=== PATIENT | female | born 1950 | race Caucasian/White ===

== ENCOUNTER 2024-09-06 18:06 | Emergency (ER) | payer MEDICARE, BC ==
--- NOTE | 2024-09-06 18:27 | ED ---
General Adult HPI - General Chief complaint: Head Injury Stated complaint: Fall Time Seen by Provider: 09/06/24 18:10 Source: patient, RN notes reviewed, old records reviewed Mode of arrival: EMS Limitations: no limitations - History of Present Illness Initial comments: This is a 73-year-old female who was walking her dogs and the dog pulled on her she fell over and hit her head against a brick wall. Patient did not lose consciousness she denies being dazed. Patient states she has chronic neck pain and she continues to have some of that neck pain today. Her major complaint is that she has pain in her right shoulder. Patient denies any chest or back pain. Patient has abdominal pain patient [place] any lower extremity pain. - Related Data Allergies Allergy/AdvReac Type Severity Reaction Status Date / Time clarithromycin [From Biaxin] Allergy Unknown Verified 09/06/24 18:16 Childhood Sulfa (Sulfonamide Allergy Unknown Verified 09/06/24 18:16 Antibiotics) Childhood Review of Systems ROS Statement: Those systems with pertinent positive or pertinent negative responses have been documented in the HPI. ROS Other: All systems not noted in ROS Statement are negative. Past Medical History Additional Past Medical History / Comment(s): TBI Past Psychological History: No Psychological Hx Reported Smoking Status: Never smoker Past Alcohol Use History: Occasional Past Drug Use History: None Reported General Exam - General Exam Comments Initial Comments: GENERAL: Patient is well-developed and well-nourished. Patient is nontoxic and well- hydrated and is in moderate distress. ENT: Neck is soft and supple. No significant lymphadenopathy is noted. Oropharynx is clear. Moist mucous membranes. Neck has full range of motion without eliciting any pain. EYES: The sclera were anicteric and conjunctiva were pink and moist. Extraocular movements were intact and pupils were equal round and reactive to light. Eyelids were unremarkable. PULMONARY: Unlabored respirations. Good breath sounds bilaterally. No audible rales rhonchi or wheezing was noted. CARDIOVASCULAR: There is a regular rate and rhythm without any murmurs gallops or rubs. ABDOMEN: Patient has a very superficial abrasion in the frontal region of her scalp on the right SKIN: Skin is clear with no lesions or rashes and otherwise unremarkable. NEUROLOGIC: Patient is alert and oriented x3. Cranial nerves II through XII are grossly intact. Motor and sensory are also intact. Normal speech, volume and content. Symmetrical smile. MUSCULOSKELETAL: Patient has tenderness of the right clavicle and anterior aspect of the acr omioclavicular joint LYMPHATICS: No significant lymphadenopathy is noted PSYCHIATRIC: Normal psychiatric evaluation. Limitations: no limitations Course Vital Signs 09/06/24 09/06/24 09/06/24 18:10 18:37 18:45 Temperature 98.2 F Pulse Rate 66 65 62 Respiratory 18 22 22 Rate Blood Pressure 135/91 166/89 171/121 O2 Sat by Pulse 96 96 95 Oximetry 09/06/24 19:26 Temperature Pulse Rate 73 Respiratory 18 Rate Blood Pressure 130/110 O2 Sat by Pulse Oximetry Medical Decision Making - Medical Decision Making Was pt. sent in by a medical professional or institution (, [facility], DATA ENGINEER, urgent care, hospital, or jail...) When possible be specific @ -No Did you speak to anyone other than the patient for history (EMS, parent, family, police, friend...)? What history was obtained from this source @ -No Did you review nursing and triage notes (agree or disagree)? Why? @ -I reviewed and agree with nursing and triage notes Were old charts reviewed (outside hosp., previous admission, EMS record, old EKG, old radiological studies, urgent care reports/EKG's, jail records)? Report findings @ -No old charts were reviewed Differential Diagnosis? @ -Cervical spine fracture, skull fracture, subdural hematoma, subarachnoid, epidural, intraparenchymal hemorrhage, shoulder fracture, clavicle fracture this is not all-inclusive list EKG interpreted by me (3pts min.). @ -As above X-rays interpreted by me (1pt min.). @ -X-ray of the shoulder shows a distal right clavicle fracture CT interpreted by me (1pt min.). @ -CT of the brain and C-spine showed no acute abnormality U/S interpreted by me (1pt. min.). @ -None done What testing was considered but not performed or refused? (CT, X-rays, U/S, labs)? Why? @ -None What meds were considered but not given or refused? Why? @ -None Did you discuss the management of the patient with other professionals (professionals i.e. [facility] Smith, DATA ENGINEER, lab, RT, psych nurse, child protective services social worker, pay station department manager, teacher, ground intelligence officer, case consultant)? Give summary @ -No Was smoking cessation discussed for >3mins.? @ -No Was critical care preformed (if so, how long)? @ -No Were there social determinants of health that impacted care today? How? (Homelessness, low income, unemployed, alcoholism, drug addiction, transportation, low edu. Level, literacy, decrease access to med. care, usp, rehab)? @ -No Was there de-escalation of care discussed even if they declined (Discuss DNR or withdrawal of care, Hospice)? DNR status @ -No What co-morbidities impacted this encounter? (DM, HTN, Smoking, COPD, CAD, Cancer, CVA, ARF, Chemo, Hep., AIDS, mental health diagnosis, sleep apnea, morbid obesity)? @ -None Was patient admitted / discharged? Hospital course, mention meds given and route, prescriptions, significant lab abnormalities, going to OR and other pertinent info. @ -Patient had a clavicle fracture. Patient was put in a shoulder immobilizer and given pain meds in the emergency department but was unable to go home on pain meds because she has a pain doctor. Undiagnosed new problem with uncertain prognosis? @ -No Drug Therapy requiring intensive monitoring for toxicity (Heparin, Nitro, Insulin, Cardizem)? @ -No Were any procedures done? @ -No Diagnosis/symptom? @ -Clavicle fracture Acute, or Chronic, or Acute on Chronic? @ -Acute Uncomplicated (without systemic symptoms) or Complicated (systemic symptoms)? @ -Uncomplicated Side effects of treatment? @ -No Exacerbation, Progression, or Severe Exacerbation? @ -No Poses a threat to life or bodily function? How? (Chest pain, [place], MD, pneumonia, PE, COPD, DKA, ARF, appy, cholecystitis, CVA, Diverticulitis, Homicidal, Suicidal, threat to staff... and all critical care pts) @ -No Disposition Clinical Impression: Clavicle fracture, Closed head injury Disposition: HOME SELF-CARE Instructions (If sedation given, give patient instructions): Clavicle Fracture (ED), Head Injury (ED) Is patient prescribed a controlled substance at d/c from ED?: No Referrals: Nonstaff,Physician [Primary Care Provider] - 1-2 days Cedric Mehta DO [Doctor of Osteopathic Medicine] - 1-2 days Time of Disposition: 19:34
[2024-09-06] MEDS: HYDROmorphone 0.5 MG/0.5 ML SYRINGE IVP STA ×2 (18:31→20:02)
--- NOTE | 2024-09-06 18:52 | CT ---
EXAMINATION TYPE: CT brain cspine wo con DATE OF EXAM: 09/06/2024 6:22 PM COMPARISON: None. CLINICAL INDICATION: Female, 73 years old with history of Trauma; CODE COAG- Fall on thinners., pain TECHNIQUE: Brain: Multiple axial CT images of the brain were obtained without IV contrast. Cspine: Axial CT images from the skull base to the inferior aspect of T2 we obtained without intraven ous contrast. Coronal and sagittal reformatted images were also reviewed. . CT DLP: 1321.3 mGycm, Automated exposure control for dose reduction was used. FINDINGS: Brain: Extra-axial spaces: No abnormal extra-axial fluid collections. Ventricular system: Within normal limits Cerebral parenchyma: No acute intraparenchymal hemorrhage or mass effect. The boo-white junction is well differentiated. Cerebellum: Unremarkable. Mass effect: No evidence of midline shift. Intracranial vasculature: Atherosclerotic calcifications of the intracranial vessels. Soft tissues: Normal. Calvarium/osseous structures: No depressed skull fracture. Paranasal sinuses and mastoid air cells: Clear. Visualized orbits: Bilateral aphakia Cervical spine: Fracture: None. Osseous structures: Multilevel degenerative disc disease changes with endplate spurring and disc oste ophyte complex's. Fixation hardware in the cervical spine at C5-C6 with fusion of C5-C6 present. Vertebral alignment: Within normal limits. Spinal canal/Neural Foramina: No evidence of significant spinal canal narrowing. No evidence for sign ificant neural foraminal stenosis. Neck soft tissues: Prevertebral soft tissues are within normal limits. Other: The airway is patent. The lung apices are clear. IMPRESSION: 1. No acute intracranial process. 2. Nonspecific white matter changes, likely secondary to chronic small vessel ischemic disease. 3. No evidence of cervical spine fracture. 4. Mild multilevel degenerative disc disease. 5. Postsurgical changes to the cervical spine at C5-C6 with fusion of C5 and C6 vertebral bodies.. [facility], , 09/06/2024 6:49 PM
[2024-09-06 18:54] VITALS: TEMP 98.2
--- NOTE | 2024-09-06 19:14 | XR ---
EXAMINATION TYPE: XR shoulder complete RT DATE OF EXAM: 09/06/2024 6:55 PM COMPARISON: None CLINICAL INDICATION: Female, 73 years old with history of Fall; pain TECHNIQUE: XR shoulder complete RT; examined in AP, internally rotated and scapular Y projections. FINDINGS: Cortical step-off of the distal clavicle superiorly. Severe degeneration changes, clavicular joint. M ild osteophyte formation of the glenohumeral joint. IMPRESSION: Cortical step-off the distal clavicle correlating with pain for acute fracture. [facility], , 09/06/2024 7:11 PM
[2024-09-06 20:04] VITALS: BP 145/83; PULSE 61; RESP 19
== END 2024-09-06 20:23 | disposition home or self-care (01) ==
LOC: EC 18:06
DX: S42.001A Fracture of unspecified part of right clavicle, initial encounter for closed fracture (principal); Z88.2 Allergy status to sulfonamides; Z88.1 Allergy status to other antibiotic agents; W22.8XXA Striking against or struck by other objects, initial encounter; Y93.01 Activity, walking, marching and hiking
CPT/HCPCS: 73030; 72125; 70450; 99284; 96374; 96376; J1171